=== PATIENT | female | born 1995 | race Caucasian/White ===

== ENCOUNTER 2022-11-27 12:52 | Outpatient (CLI) | payer BC, SELFPAY ==
--- NOTE | ~2022-11-27 | XR_ITS ---
Lumbosacral Spine: AP, oblique, and lateral views Clinical History: Pain Findings: The normal lordotic curve is maintained. The vertebral bodies and posterior elements are i ntact. The intervertebral disc spaces are preserved. The sacroiliac joints are normally outlined. Impression: No significant abnormality. Reviewed, dictated and finalized at [facility]. Impression: No significant abnormality.
== END 2022-11-27 12:53 | disposition home or self-care (01) ==
LOC: ANHIMG 12:57
PROVIDERS: PCP Family Medicine; Visit Provider Nurse Practitioner Obstetrics & Gynecology
DX: R10.9 Unspecified abdominal pain (principal); M54.50 Low back pain, unspecified
CPT/HCPCS: 72110

== ENCOUNTER 2024-10-19 15:34 | Emergency (ER) | payer BC, SELFPAY ==
[2024-10-19 15:48] VITALS: BP 150/94; PULSE 94; RESP 16; TEMP 37.4; O2SAT 100
--- NOTE | 2024-10-19 15:57 | ED.BACK ---
HPI - Back Pain/Injury General Chief Complaint: Urogenital-Female Stated Complaint: Lower Back Pain Time Seen by Provider: 10/19/24 15:57 Source: patient and RN notes reviewed Mode of arrival: ambulatory Limitations: no limitations History of Present Illness HPI Narrative: 29-year-old female presented for complaint of left lower abdominal pain and low back pain since yesterday. He endorses diarrhea yesterday. States she and her PCP or concern for ovarian cyst. Denies dysuria, hematuria, nausea, vomiting, abdominal pain, flank pain, constipation, fevers or chills. Denies concern for or STD. Related Data Home Medications ?Medication ?Instructions ?Recorded ?Confirmed ?Last Taken ?Type gabapentin 300 mg capsule mg 10/19/24 Unknown History Allergies Allergy/AdvReac Type Severity Reaction Status Date / Time No Known Allergies Allergy Unverified 10/19/24 15:55 Review of Systems Review of Systems: CONSTITUTIONAL: Denies body aches, fever, chills, or sweats. CARDIOVASCULAR: Denies chest pain, palpitations, or edema. RESPIRATORY: Denies cough or dyspnea. GASTROINTESTINAL: Denies nausea, vomiting, reports left lower abdominal pain, diarrhea. GENITOURINARY: Denies dysuria, frequency, urgency, hematuria, reports left flank pain SKIN: Denies rash, itching, or wounds. MUSCULOSKELETAL: Denies back pain or myalgia. [facility] Past Medical History Medical History Fibromyalgia Family History Family History Father No problems noted. Mother No problems noted. Social History Social History (Updated 02/16/23 @ 13:14 by Maria Guadalupe Oropeza MA) Smoking status: Never smoker Alcohol intake: never Substance use: never Substance use type: does not use Lack of Transportation: No Lack of Food: Never True Current Housing: I Have Housing Concerned About Future Housing: No Difficulty Paying Gas/Electric Bills: No Difficulty Paying for Meds: No Currently Unemployed: No Education: High School Diploma/GED Difficulty w/ Childcare or Family Care: No Living arrangements: with family Occupation/Education: occupation Gender identity (if verbalized by the patient): Female Sexual Orientation (if Verbalized by the Patient): Straight or Heterosexual Spiritual care concerns: No Comments At time of signature, I have reviewed and agree with nursing past medical, surgical, social and family history unless otherwise noted. Please see nursing chart for further information. There is no relevant family history pertinent to the presenting complaint Exam Narrative: GENERAL: Well-appearing ENT: Mucous membranes pink and moist. NECK: Normal AROM. Supple. CHEST: No respiratory distress. Clear to auscultation. HEART: Regular rate and rhythm. ABDOMEN: Soft, nondistended, normal active bowel sounds. Left CVA tenderness, LLQ tender with palpation. No guarding, rebound tenderness, or rigid. No pulsatile masses. Bowel sounds x4 No organomegaly. Negative Neely?s sign. No periumbilical tenderness. No Supra public tenderness or distension SKIN: Warm, dry, no rash. NEURO: No focal deficits. Alert and oriented x3. Gait steady. Course Course Emergency Course: Patient is aware of diagnosis, understands and agrees to treatment plan. Anticipatory guidance given. Patient agrees to follow-up as directed and is aware of reasons to seek care at the emergency department. Portions of this record may have been created with voice recognition software Level of Care: Express Care Visit Vital Signs Vital signs: Vital Signs Temperature 99.4 F 10/19/24 15:48 Pulse Rate 94 10/19/24 15:48 Respiratory Rate 16 10/19/24 15:48 Blood Pressure 150/94 H 10/19/24 15:48 Pulse Oximetry 100 10/19/24 15:48 Temperature 99.4 F 10/19/24 15:48 Pulse Rate 94 10/19/24 15:48 Respiratory Rate 16 10/19/24 15:48 Blood Pressure 150/94 H 10/19/24 15:48 Pulse Oximetry 100 10/19/24 15:48 Reviewed MDM - Back Pain/Injury MDM Narrative Medical decision making narrative: Patient presenting with left lower quadrant abdominal pain and flank pain. Patient states she and her PCP are concerned for ovarian cyst. Patient is advised to evaluate for this she would need ER transfer for US. Patient declines stating we don't have the money that is why we are here. Discussed the risk associated with untreated ovarian cyst including torsion, infertility, surgical emergency. v/u. Discussed physical exam findings. Pt is agreeable to treat for UTI at this time and will closely monitor the symptoms and go to the ER immediately. Advised supportive measures and signs/symptoms to go to the ER. Pt is appropriate for outpt treatment and f/u. Differential Diagnosis Differential diagnosis: Likely lumbar radiculopathy, strain of lumbar region, renal colic, pyelonephritis, discitis and other (diverticulitis, hernia, appendicitis, bowel obstruction, IBS, colon cancer, , kidney stone, uti, pyelonephritis, psoas abscess, ectopic , mittelschmerz, ovarian cyst/torsion, PID) Medical Records Medical records narrative: Lab Data Labs: Lab Results 10/19/24 Range/Units 15:58 POC Urine Color Light/pale POC Urine Clarity Clear POC Urine pH 7.0 POC Ur Specif [place] 1.020 POC Urine Protein Trace (Negative) POC Ur Glucose (UA) Negative (Negative) POC Urine Ketones Negative (Negative) POC Urine Blood 2+ (Negative) POC Urine Nitrite Negative (Negative) POC Urine Bilirubin Negative (Negative) POC Urine Urobilinogen 1.0 POC U Leukocyte Esteras 2+ (Negative) Discharge Plan Discharge Clinical Impression: Left lower quadrant abdominal pain Patient Disposition: Home, Self-Care Condition: Stable Instructions: Antibiotic Form, Urinary Tract Infection in Women (ED), Abdominal Pain (ED) Additional Instructions: You were advised to transfer to the ER for further evaluation of the left lower abdominal pain/flank pain and you decline at this time. You were made aware of the risk of refusal including worsening of your condition, permanent disability, and . Report to the ER immediately by calling 911 for any worsening symptoms. Take the antibiotic as prescribed The urine will be sent of for a culture to identify what type of bacteria is causing your infection. If the culture shows that the antibiotic will not get rid of your infection, you will be notified and a new antibiotic will be called in for you. Increase water intake Tylenol every 8 hours as needed for pain you will need to follow up with your PCP, call to schedule an appointment. Go to the ER immediately for any worsening symptoms or concerns Patient Language: Portuguese Prescriptions: New ciprofloxacin HCl [Cipro] 500 mg tablet 500 mg PO Q12H 7 Days Qty: 14 0RF No Action gabapentin 300 mg capsule L norgest/e.estradiol-e.estrad [Simpesse] 0.15 mg-30 mcg (84)/10 mcg (7) tablets,dose pack,3 month See Rx Instructions .ROUTE .COMPLEX Qty: 182 2RF Dose Instruction: TAKE 1 TABLET BY MOUTH EVERY DAY Rx Instructions: TAKE 1 TABLET BY MOUTH EVERY DAY Follow-up/Referrals: Luis Oliveros MD [Primary Care Provider] - Time of Disposition: 16:10
[2024-10-19 16:00] LABS: EDUAAPPEAR Clear; EDUABILI Negative (Negative); EDUABLOOD 2+ (Negative); EDUACOLOR1 Light/Pale; EDUAGLUCOSE Negative (Negative); EDUAKETONE Negative (Negative); EDUALEUKO 2+ (Negative); EDUANITRATE Negative (Negative); EDUAPROTEIN Trace (Negative)
== END 2024-10-19 16:12 | disposition home or self-care (01) ==
PROVIDERS: Emergency Provider Nurse Practitioner Family; PCP Family Medicine
DX: R10.32 Left lower quadrant pain (principal); M79.7 Fibromyalgia
CPT/HCPCS: 81003; 87086; 99213; G0463